=== PATIENT | male | born 1965 | race Caucasian/White ===

== ENCOUNTER → 2020-07-31 | Outpatient (CLI) | payer BC ==
[~2020-07-31] MED LIST: ALDACTONE25 MG PO; AMLODIPINE BESY10 MG PO; ASPIRIN CHEWABL81 MG PO; CARDIZEM CD240 MG PO; CATAPRES TTS P TD; ELIQUIS 5 MG TAB5 MG PO; FARXIGA5 MG PO; FENOFIBRATE145 MG PO; GLUCOPHAGE1000 MG PO; HYDRALAZINE HCL10 MG PO; IMDUR ER TAB 3030 MG PO; JARDIANCE25 MG PO; LABETALOL HCL100 MG PO; LIPITOR TAB 2020 MG PO; LISINOPRIL40 MG PO; METOPROLOL TART25 MG PO; NOVOLOG100 UNIT/1 SQ; PLAVIX 75 MG TA75 MG PO; SOTALOL80 MG PO; VITAMIN D5000 UNIT PO; ZANTAC 150 MG150 MG PO
== END ==
LOC: EMI 11:15
DX: M54.2 Cervicalgia (principal); R29.5 Transient paralysis; R29.818 Other symptoms and signs involving the nervous system; M48.02 Spinal stenosis, cervical region
CPT/HCPCS: 72141

== ENCOUNTER → 2020-08-08 | Outpatient (CLI) | payer OTHER | LOC: KOH-I 14:59 | DX: M79.671 Pain in right foot (principal); M25.571 Pain in right ankle and joints of right foot; R60.0 Localized edema; M19.071 Primary osteoarthritis, right ankle and foot | CPT/HCPCS: 73610; 73630 ==

== ENCOUNTER → 2020-08-18 | Outpatient (CLI) | payer OTHER, BC | LOC: RAD 16:32 | DX: S90.01XA Contusion of right ankle, initial encounter (principal); S90.31XA Contusion of right foot, initial encounter; M19.271 Secondary osteoarthritis, right ankle and foot; W19.XXXA Unspecified fall, initial encounter | CPT/HCPCS: 73610; 73630 ==

== ENCOUNTER → 2020-08-23 | Outpatient (CLI) | payer OTHER, BC | LOC: RAD 13:34 | DX: M79.661 Pain in right lower leg (principal); S82.431A Displaced oblique fracture of shaft of right fibula, initial encounter for closed fracture; W19.XXXA Unspecified fall, initial encounter | CPT/HCPCS: 73590 ==

== ENCOUNTER → 2020-09-06 | Outpatient (CLI) | payer BC | LOC: EXRD 10:32 | DX: M48.00 Spinal stenosis, site unspecified (principal) | CPT/HCPCS: 72040 ==

== ENCOUNTER → 2020-10-25 | Outpatient (CLI) | payer BC | LOC: EXRD 09:50 | DX: M48.00 Spinal stenosis, site unspecified (principal); Z98.1 Arthrodesis status | CPT/HCPCS: 72050 ==

== ENCOUNTER → 2020-12-25 | Outpatient (CLI) | payer BC | LOC: RAD 14:09 | DX: G95.9 Disease of spinal cord, unspecified (principal); M48.00 Spinal stenosis, site unspecified; Z98.1 Arthrodesis status | CPT/HCPCS: 72040 ==

== ENCOUNTER → 2021-06-08 | Outpatient (CLI) | payer BC | LOC: RAD 12:22 | DX: G95.9 Disease of spinal cord, unspecified (principal); Z98.1 Arthrodesis status; M25.78 Osteophyte, vertebrae | CPT/HCPCS: 72040 ==

== ENCOUNTER → 2021-11-07 | Outpatient (CLI) | payer BC | LOC: EMI 08:00 | DX: M54.50 Low back pain, unspecified (principal); M48.061 Spinal stenosis, lumbar region without neurogenic claudication | CPT/HCPCS: 72148 ==

== ENCOUNTER → 2022-01-10 | Outpatient (CLI) | payer BC | LOC: HEART 5 13:20 | DX: R01.1 Cardiac murmur, unspecified (principal); I51.7 Cardiomegaly | CPT/HCPCS: 93306 ==

== ENCOUNTER → 2022-03-08 | Outpatient (CLI) | payer BC ==
[2022-03-08 15:04] LABS: RED BLOOD COUNT 4.94 M/UL (4.20-5.50); WHITE BLOOD COUNT 10.7 K/UL (4.5-11.0)
[2022-03-08 15:28] LABS: BUN/CREATININE RATIO 34 (0-10)
== END ==
LOC: LAB 13:58
DX: Z01.812 Encounter for preprocedural laboratory examination (principal); I48.91 Unspecified atrial fibrillation; Z79.899 Other long term (current) drug therapy
CPT/HCPCS: 36415; 80053; 85025; 85027